=== PATIENT | female | born 1950 | race Caucasian/White ===

== ENCOUNTER 2020-03-13 15:41 | Outpatient (REF) | payer MEDICARE, SELFPAY | END 2020-03-13 15:42 | disposition home or self-care (01) | LOC: HO.LAB 15:41 | PROVIDERS: PCP Internal Medicine; Visit Provider Internal Medicine | DX: R31.0 Gross hematuria (principal); M54.5 Low back pain; Q61.01 Congenital single renal cyst | CPT/HCPCS: 87086; 87088; 87186 ==

== ENCOUNTER 2020-10-18 06:59 | Outpatient (REF) | payer MEDICARE, SELFPAY ==
[2020-10-18 07:48] LABS: Estimated Average Glucose 126 mg/dL
[2020-10-18 08:12] LABS: Alanine Aminotransferase 21 U/L (0-31); Albumin Level 4.2 g/dL (3.5-5.0); Alkaline Phosphatase 87 U/L (39-117); Anion Gap 15 (12-20); Aspartate Amino Transferase 25 U/L (5-31); Bilirubin Total 0.3 mg/dL (0.0-1.0); Blood Urea Nitrogen 19 mg/dL (9-16); Calcium 9.5 mg/dL (8.4-10.2); Carbon Dioxide 27 mmol/L (22-29); Chloride 104 mmol/L (96-108); Estimated Glomerular Filt Rate > 60; Glucose Fasting 114 mg/dL (60-99); Potassium 4.8 mmol/L (3.3-5.1); Sodium 141 mmol/L (135-145); Total Protein 7.1 g/dL (6.5-8.0)
== END 2020-10-18 07:00 | disposition home or self-care (01) ==
LOC: HO.LAB 06:59
PROVIDERS: PCP Internal Medicine; Visit Provider Internal Medicine
DX: F17.291 Nicotine dependence, other tobacco product, in remission (principal); I10 Essential (primary) hypertension; R73.01 Impaired fasting glucose
CPT/HCPCS: 36415; 80053; 83036

== ENCOUNTER 2020-12-13 09:02 | Outpatient (REF) | payer MEDICARE, SELFPAY ==
[2020-12-13 17:03] LABS: Urine Cytology See Pathology rpt
== END 2020-12-13 09:03 | disposition home or self-care (01) ==
LOC: HO.LNP 09:02
PROVIDERS: PCP Internal Medicine; Visit Provider Urology
DX: R32 Unspecified urinary incontinence (principal); R31.29 Other microscopic hematuria
CPT/HCPCS: 88112; 99212

== ENCOUNTER 2021-01-22 07:23 | Outpatient (REF) | payer MEDICARE, SELFPAY ==
--- NOTE | ~2021-01-22 | MM_ITS ---
EXAMINATION: MM SCREENING DIGITAL BREAST TOMOSYNTHESIS, BILATERAL CLINICAL INFORMATION: Screening. Asymptomatic. The lifetime risk of breast cancer based on the Tyrer-Cuzick Model is 5%. COMPARISON: Mammography: 01/16/2020, 12/13/2018, 11/24/2017, 11/19/2016 TECHNIQUE: Digital breast tomosynthesis is performed in both the craniocaudal and mediolateral oblique views along with computer-aided detection (CAD). Synthesized 2D images are generated from the tomosynthesis. FINDINGS: There are scattered areas of fibroglandular density (ACR BI-RADS breast composition Category b). There are no significant masses, abnormal calcifications, or other abnormalities. Parenchymal pattern is similar to prior studies. There is no developing density. The axilla and skin contours are unremarkable. MM/MM tomosynthesis screening BI IMPRESSION: No mammographic evidence of malignancy. ASSESSMENT: BI-RADS 1: Negative RECOMMENDATION: Routine annual mammography screening. This patient's information was entered into a reminder system with a target due date for their next mammogram.
== END 2021-01-22 07:24 | disposition home or self-care (01) ==
LOC: HO.MAMMO 07:23
PROVIDERS: PCP Internal Medicine; Visit Provider Internal Medicine
DX: Z12.31 Encounter for screening mammogram for malignant neoplasm of breast (principal)
CPT/HCPCS: 77063; 77067

== ENCOUNTER 2021-04-14 06:33 | Outpatient (REF) | payer MEDICARE, SELFPAY ==
[2021-04-14 06:49] LABS: MANUAL DIFF FLAG NO
[2021-04-14 07:12] LABS: Basophils Absolute Auto 0.1 X10*3/uL (0.0-0.2); Basophils Percent Auto 0.9 % (0-2); Eosinophils Absolute Auto 0.4 X10*3/uL (0.0-0.4); Eosinophils Percent Auto 4.4 % (0-4); Hematocrit 44.6 % (37.0-47.0); Hemoglobin 14.7 g/dl (12.0-16.0); Imm Gran Abs Auto 0.02 X10*3/uL (0.00-0.03); Imm Gran Pct Auto 0.2 % (0.0-0.4); Lymphocytes Absolute Auto 2.7 X10*3/uL (1.2-4.9); Mean Corpuscular Hemoglobin 29.1 pg (27.0-33.0); Mean Corpuscular Volume 88.1 fL (80.0-98.0); Monocytes Absolute Auto 0.7 X10*3/uL (0.1-1.2); Monocytes Percent Auto 8.1 % (2-11); Neutrophils Absolute Auto 4.3 x10*3/uL (2.0-8.3); Neutrophils Percent Auto 53.4 % (45-73); Platelet Count 279 X10*3/uL (160-400); Red Blood Count 5.06 X10*6/uL (4.20-5.50); White Blood Count 8.1 X10*3/uL (4.8-10.8)
[2021-04-14 07:24] LABS: Estimated Average Glucose 123 mg/dL; Hemoglobin A1c % 5.9 %
[2021-04-14 07:35] LABS: Alanine Aminotransferase 21 U/L (0-31); Albumin Level 4.3 g/dL (3.5-5.0); Alkaline Phosphatase 77 U/L (39-117); Anion Gap 13 (12-20); Aspartate Amino Transferase 18 U/L (5-31); Bilirubin Total 0.7 mg/dL (0.0-1.0); Blood Urea Nitrogen 16 mg/dL (9-16); Calcium 9.6 mg/dL (8.4-10.2); Carbon Dioxide 27 mmol/L (22-29); Chloride 104 mmol/L (96-108); Cholesterol 212 mg/dL; Estimated Glomerular Filt Rate > 60; Glucose Fasting 114 mg/dL (60-99); HDL Cholesterol 45 mg/dL; LDL Cholesterol Calculated 126 mg/dl; Potassium 4.4 mmol/L (3.3-5.1); Sodium 140 mmol/L (135-145); Total Protein 7.1 g/dL (6.5-8.0); Triglycerides 205 mg/dL
== END 2021-04-14 06:34 | disposition home or self-care (01) ==
LOC: HO.LAB 06:33
PROVIDERS: PCP Internal Medicine; Visit Provider Internal Medicine
DX: E78.2 Mixed hyperlipidemia (principal); I10 Essential (primary) hypertension; R31.0 Gross hematuria; R73.01 Impaired fasting glucose
CPT/HCPCS: 36415; 80053; 80061; 83036; 85025

== ENCOUNTER 2021-07-22 08:21 | Outpatient (REF) | payer MEDICARE, SELFPAY ==
--- NOTE | ~2021-07-22 | CT_ITS ---
EXAMINATION: CT CHEST SCREENING CLINICAL INFORMATION: Nicotine dependence. [id number] history of smoking. Quit smoking 10 years ago. COMPARISON: 02/08/2020 and 01/09/2019. TECHNIQUE: Multidetector volumetric CT imaging of the chest is performed without contrast using low dose technique. Additional 2D coronal and sagittal reformatted images and axial 3D maximum intensity projection (MIP) images are generated on the CT workstation. This CT examination was performed using dose optimization techniques as appropriate, variously including the following: *Automated exposure control *Adjustment of mA and/or kV according to patient size (this includes techniques or standardized protocols for targeted exams where dose is matched to indication/reason for exam; i.e. extremities or head) *Use of iterative reconstruction technique DLP: 56 mGy-cm FINDINGS: LUNGS: Central airways are patent. No evidence of bronchial wall thickening or bronchiectasis is appreciated. No confluent parenchymal disease is seen. There are changes of centrilobular emphysema seen within the upper lobes and superior segments of the lower lobes. There are some sub-4 mm densities present as well as calcified granulomas. There is discoid scarring along the major fissure within the left upper lung. Regions of scarring are seen within the lingula and right middle lobe. There is again noted to be a semisolid density within the right upper lobe on image [address] series #5 which measures approximately 9 mm in diameter without significant change dating back to 07/08/2018. There is a 5 mm nodule within the left lower lobe on image 319 of 554 which is unchanged from prior studies dating back to 01/09/2019. There is a 4 mm density seen about the left lower lobe on image 321 of 554 in series #5. This too appears stable. MEDIASTINUM: Visualized thyroid gland appears unremarkable. Heart normal size. No pericardial effusion. No thoracic aortic aneurysm. Coronary artery calcification is seen. There is nonocclusive calcified plaque seen within the aortic arch. No mediastinal or hilar lymphadenopathy appreciated. PLEURA: There is no pleural effusion. No pleural mass or thickening. AXILLA: No lymphadenopathy. UPPER ABDOMEN: Unremarkable OSSEOUS STRUCTURES: No suspicious destructive bony lesions identified. CT/CT lung screening IMPRESSION: Changes of centrilobular emphysema. Essentially stable appearance of lung nodules as described. Old granulomatous disease. ASSESSMENT: Lung-RADS category 2: Benign RECOMMENDATION: Routine annual low-dose CT screening in 12 months.
== END 2021-07-22 08:22 | disposition home or self-care (01) ==
LOC: HO.CT 08:21
PROVIDERS: Visit Provider Physician Assistant Medical
DX: Z12.2 Encounter for screening for malignant neoplasm of respiratory organs (principal); Z87.891 Personal history of nicotine dependence
CPT/HCPCS: 71271

== ENCOUNTER 2021-08-15 06:46 | Outpatient (REF) | payer MEDICARE, SELFPAY ==
[2021-08-15 07:45] LABS: Estimated Average Glucose 123 mg/dL; Hemoglobin A1c % 5.9 %
[2021-08-15 07:59] LABS: Alanine Aminotransferase 31 U/L (0-31); Albumin Level 4.2 g/dL (3.5-5.0); Alkaline Phosphatase 77 U/L (39-117); Anion Gap 11 (12-20); Aspartate Amino Transferase 24 U/L (5-31); Bilirubin Total 0.7 mg/dL (0.0-1.0); Blood Urea Nitrogen 15 mg/dL (9-16); Calcium 9.6 mg/dL (8.4-10.2); Carbon Dioxide 30 mmol/L (22-29); Chloride 105 mmol/L (96-108); Cholesterol 211 mg/dL; Estimated Glomerular Filt Rate > 60; Glucose Random 113 mg/dL (60-115); HDL Cholesterol 50 mg/dL; LDL Cholesterol Calculated 133 mg/dl; Sodium 141 mmol/L (135-145); Total Protein 7.1 g/dL (6.5-8.0); Triglycerides 144 mg/dL
== END 2021-08-15 06:47 | disposition home or self-care (01) ==
LOC: HO.LAB 06:46
PROVIDERS: PCP Internal Medicine; Visit Provider Internal Medicine
DX: E78.00 Pure hypercholesterolemia, unspecified (principal); I10 Essential (primary) hypertension; R05.9 Cough, unspecified; R73.01 Impaired fasting glucose; F17.211 Nicotine dependence, cigarettes, in remission
CPT/HCPCS: 36415; 80053; 80061; 83036

== ENCOUNTER 2022-02-12 08:41 | Outpatient (REF) | payer MEDICARE, SELFPAY ==
[2022-02-12 09:43] LABS: Estimated Average Glucose 120 mg/dL; Hemoglobin A1c % 5.8 %
[2022-02-12 10:13] LABS: Alanine Aminotransferase 17 U/L (0-31); Albumin Level 4.3 g/dL (3.5-5.0); Alkaline Phosphatase 84 U/L (39-117); Anion Gap 15 (12-20); Aspartate Amino Transferase 17 U/L (5-31); Bilirubin Total 0.4 mg/dL (0.0-1.0); Blood Urea Nitrogen 15 mg/dL (9-16); Calcium 9.7 mg/dL (8.4-10.2); Carbon Dioxide 29 mmol/L (22-29); Chloride 104 mmol/L (96-108); Cholesterol 221 mg/dL; Estimated Glomerular Filt Rate > 60; Glucose Random 115 mg/dL (60-115); HDL Cholesterol 43 mg/dL; LDL Cholesterol Calculated 130 mg/dl; Potassium 4.8 mmol/L (3.3-5.1); Sodium 143 mmol/L (135-145); Total Protein 7.1 g/dL (6.5-8.0); Triglycerides 240 mg/dL
== END 2022-02-12 08:42 | disposition home or self-care (01) ==
LOC: HO.LAB 08:41
PROVIDERS: PCP Internal Medicine; Visit Provider Internal Medicine
DX: E78.00 Pure hypercholesterolemia, unspecified (principal); I10 Essential (primary) hypertension; N30.00 Acute cystitis without hematuria; R73.01 Impaired fasting glucose; F17.201 Nicotine dependence, unspecified, in remission
CPT/HCPCS: 36415; 80053; 80061; 83036

== ENCOUNTER 2022-02-16 09:02 | Outpatient (REF) | payer MEDICARE, SELFPAY ==
--- NOTE | ~2022-02-16 | MM_ITS ---
EXAMINATION: MM SCREENING DIGITAL BREAST TOMOSYNTHESIS, BILATERAL CLINICAL INFORMATION: Screening. Asymptomatic. The lifetime risk of breast cancer based on the Tyrer-Cuzick Model is 5%. COMPARISON: Mammography: 01/22/2021, 01/16/2020, 12/13/2018 TECHNIQUE: Digital breast tomosynthesis is performed in both the craniocaudal and mediolateral oblique views along with computer-aided detection (CAD). Synthesized 2D images are generated from the tomosynthesis. Additional left CC view is provided. FINDINGS: There are scattered areas of fibroglandular density (ACR BI-RADS breast composition Category b). There are no significant masses, abnormal calcifications, or other abnormalities. Parenchymal pattern is similar to prior studies. There is no developing density or architectural abnormality. The axilla and skin contours are unremarkable. No significant changes. MM/MM tomosynthesis screening BI IMPRESSION: No mammographic evidence of malignancy. ASSESSMENT: BI-RADS 1: Negative RECOMMENDATION: Routine annual mammography screening. This patient's information was entered into a reminder system with a target due date for their next mammogram.
== END 2022-02-16 09:03 | disposition home or self-care (01) ==
LOC: HO.MAMMO 09:02
PROVIDERS: PCP Internal Medicine; Visit Provider Internal Medicine
DX: Z12.31 Encounter for screening mammogram for malignant neoplasm of breast (principal)
CPT/HCPCS: 77063; 77067

== ENCOUNTER 2022-06-06 07:07 | Outpatient (REF) | payer MEDICARE, SELFPAY ==
[2022-06-06 07:19] LABS: MANUAL DIFF FLAG NO
[2022-06-06 08:01] LABS: Basophils Absolute Auto 0.1 X10*3/uL (0.0-0.2); Basophils Percent Auto 0.9 % (0-2); Eosinophils Absolute Auto 0.3 X10*3/uL (0.0-0.4); Eosinophils Percent Auto 3.8 % (0-4); Hematocrit 42.7 % (37.0-47.0); Hemoglobin 13.7 g/dl (12.0-16.0); Imm Gran Abs Auto 0.02 X10*3/uL (0.00-0.03); Imm Gran Pct Auto 0.2 % (0.0-0.4); Lymphocytes Absolute Auto 2.6 X10*3/uL (1.2-4.9); Lymphocytes Percent Auto 28.7 % (20-40); Mean Corpuscular HGB Conc 32.1 g/dl (31.0-35.0); Mean Corpuscular Hemoglobin 28.7 pg (27.0-33.0); Mean Corpuscular Volume 89.3 fL (80.0-98.0); Monocytes Percent Auto 11.6 % (2-11); Neutrophils Absolute Auto 4.9 x10*3/uL (2.0-8.3); Neutrophils Percent Auto 54.8 % (45-73); Platelet Count 322 X10*3/uL (160-400); Red Blood Count 4.78 X10*6/uL (4.20-5.50); White Blood Count 8.9 X10*3/uL (4.8-10.8)
[2022-06-06 08:28] LABS: Alanine Aminotransferase 18 U/L (0-31); Albumin Level 4.4 g/dL (3.5-5.0); Alkaline Phosphatase 67 U/L (39-117); Anion Gap 13 (12-20); Aspartate Amino Transferase 17 U/L (5-31); Bilirubin Total 0.4 mg/dL (0.0-1.0); Blood Urea Nitrogen 20 mg/dL (9-16); Calcium 9.5 mg/dL (8.4-10.2); Carbon Dioxide 28 mmol/L (22-29); Chloride 105 mmol/L (96-108); Cholesterol 180 mg/dL; Estimated Glomerular Filt Rate > 60; Glucose Random 101 mg/dL (60-115); HDL Cholesterol 55 mg/dL; LDL Cholesterol Calculated 108 mg/dl; Potassium 4.5 mmol/L (3.3-5.1); Sodium 141 mmol/L (135-145); Total Protein 7.1 g/dL (6.5-8.0); Triglycerides 85 mg/dL
[2022-06-06 08:47] LABS: Thyroid Stimulating Hormone 1.35 uIU/mL (0.32-4.0); Vitamin D 25-OH Total 45.1 ng/mL (>30)
[2022-06-06 08:53] LABS: Vitamin B12 469 pg/mL (200-900)
== END 2022-06-06 07:08 | disposition home or self-care (01) ==
LOC: HO.LAB 07:07
PROVIDERS: PCP Internal Medicine; Visit Provider Internal Medicine
DX: E78.2 Mixed hyperlipidemia (principal); I10 Essential (primary) hypertension; F17.201 Nicotine dependence, unspecified, in remission
CPT/HCPCS: 36415; 80053; 80061; 82306; 82607; 84443; 85025

== ENCOUNTER 2023-02-03 07:35 | Outpatient (REF) | payer MEDICARE, SELFPAY ==
[2023-02-03 08:55] LABS: Alanine Aminotransferase 18 U/L (0-31); Albumin Level 4.2 g/dL (3.5-5.0); Alkaline Phosphatase 49 U/L (39-117); Anion Gap 11 (12-20); Aspartate Amino Transferase 18 U/L (5-31); Bilirubin Total 0.4 mg/dL (0.0-1.0); Blood Urea Nitrogen 23 mg/dL (9-16); Calcium 9.6 mg/dL (8.4-10.2); Carbon Dioxide 26 mmol/L (22-29); Chloride 108 mmol/L (96-108); Cholesterol 172 mg/dL (<200); Estimated Glomerular Filt Rate > 60; Glucose Random 100 mg/dL (60-115); HDL Cholesterol 50 mg/dL (>40); LDL Cholesterol Calculated 108 mg/dL (<100); Potassium 3.9 mmol/L (3.3-5.1); Sodium 141 mmol/L (135-145); Triglycerides 72 mg/dL (<150)
== END 2023-02-03 07:36 | disposition home or self-care (01) ==
LOC: HO.LAB 07:35
PROVIDERS: PCP Internal Medicine; Visit Provider Internal Medicine
DX: E78.2 Mixed hyperlipidemia (principal); I10 Essential (primary) hypertension; R05.9 Cough, unspecified; F17.211 Nicotine dependence, cigarettes, in remission
CPT/HCPCS: 36415; 80053; 80061

== ENCOUNTER 2023-02-18 08:57 | Outpatient (REF) | payer MEDICARE, SELFPAY | END 2023-02-18 08:58 | disposition home or self-care (01) | LOC: HO.MAMMO 08:57 | PROVIDERS: PCP Internal Medicine; Visit Provider Internal Medicine | DX: Z12.31 Encounter for screening mammogram for malignant neoplasm of breast (principal) | CPT/HCPCS: 77063; 77067 ==

== ENCOUNTER → 2023-02-18 09:00 | Outpatient (BNV) | payer MEDICARE, SELFPAY | PROVIDERS: PCP Internal Medicine; Visit Provider Radiology Diagnostic Radiology | DX: Z12.31 Encounter for screening mammogram for malignant neoplasm of breast (principal) | CPT/HCPCS: 77063; 77067 ==

== ENCOUNTER 2023-05-03 09:03 | Outpatient (REF) | payer MEDICARE, SELFPAY ==
--- NOTE | ~2023-05-03 | CT_ITS ---
EXAMINATION: CT CHEST SCREENING CLINICAL INFORMATION: History of nicotine dependence; former smoker with 45 pack-year smoking history. COMPARISON: Prior chest CT examinations, most recently 07/22/2021. TECHNIQUE: Multidetector volumetric CT imaging of the chest is performed without contrast using low dose technique. Additional 2D coronal and sagittal reformatted images and axial 3D maximum intensity projection (MIP) images are generated on the CT workstation. This CT examination was performed using dose optimization techniques as appropriate, variously including the following: *Automated exposure control *Adjustment of mA and/or kV according to patient size (this includes techniques or standardized protocols for targeted exams where dose is matched to indication/reason for exam; i.e. extremities or head) *Use of iterative reconstruction technique DLP: 77 mGy-cm FINDINGS: LUNGS: There is mild biapical pleural and parenchymal scarring. In particular, there is a stable focus of parenchymal scarring seen at the anterior right apex which is unchanged from 07/08/2017 and considered benign by virtue of its long-term stability. Within the posterior segment of the right upper lobe laterally (5:129 and 214), a 4 mm ovoid noncalcified nodule and a benign, calcified granuloma are seen. In the lateral basal segment of the left lower lobe (5:3 4347), 5 mm and 4 mm noncalcified nodules are seen. These nodules are unchanged from 02/08/2020, and they are considered benign. No new nodule is seen. There is no mass, infiltrate or groundglass opacity. There are mild centrilobular emphysematous changes. There is no generalized small airway thickening. The central airways appear patent. MEDIASTINUM: The thyroid is unremarkable. There is no thoracic aortic aneurysm. There are mild atherosclerotic calcifications of the great vessel origins and thoracic aorta. No mediastinal or hilar lymphadenopathy is seen. CORONARY ARTERY CALCIFICATION: Mild. PLEURA: There is no pleural effusion. No pleural mass or thickening. AXILLA: No lymphadenopathy. UPPER ABDOMEN: Unremarkable OSSEOUS STRUCTURES: There is multi-level marked thoracic spondylosis, with an appearance suggesting possible DISH (diffuse idiopathic skeletal hyperostosis). No acute or aggressive osseous finding is noted. CT/CT lung screening IMPRESSION: 1. Benign, stable bilateral pulmonary nodules are seen, for which no imaging follow-up is recommended. 2. There are mild centrilobular emphysematous changes. 3. No thoracic lymphadenopathy or pleural effusion is seen. 4. Skeletal findings suggest possible DISH. No aggressive osseous lesion is seen. ASSESSMENT: Lung-RADS category 2: Benign RECOMMENDATION: Routine annual low-dose CT screening in 12 months.
== END 2023-05-03 09:04 | disposition home or self-care (01) ==
LOC: HO.CT 09:03
PROVIDERS: PCP Internal Medicine; Visit Provider Physician Assistant Medical
DX: Z12.2 Encounter for screening for malignant neoplasm of respiratory organs (principal); Z87.891 Personal history of nicotine dependence
CPT/HCPCS: 71271

== ENCOUNTER 2023-08-07 07:19 | Outpatient (REF) | payer MEDICARE, SELFPAY ==
[2023-08-07 07:39] LABS: MANUAL DIFF FLAG NO
[2023-08-07 07:55] LABS: Basophils Absolute Auto 0.1 X10*3/uL (0.0-0.2); Basophils Percent Auto 0.6 % (0-2); Eosinophils Absolute Auto 0.2 X10*3/uL (0.0-0.4); Eosinophils Percent Auto 2.3 % (0-4); Hematocrit 44.7 % (37.0-47.0); Hemoglobin 14.4 g/dl (12.0-16.0); Imm Gran Abs Auto 0.02 X10*3/uL (0.00-0.03); Imm Gran Pct Auto 0.3 % (0.0-0.4); Lymphocytes Absolute Auto 2.4 X10*3/uL (1.2-4.9); Lymphocytes Percent Auto 30.9 % (20-40); Mean Corpuscular HGB Conc 32.2 g/dl (31.0-35.0); Mean Corpuscular Hemoglobin 29.3 pg (27.0-33.0); Mean Corpuscular Volume 90.9 fL (80.0-98.0); Mean Platelet Volume 10.5 fL (9.4-12.3); Monocytes Absolute Auto 0.7 X10*3/uL (0.1-1.2); Monocytes Percent Auto 9.1 % (2-11); Neutrophils Absolute Auto 4.5 x10*3/uL (2.0-8.3); Neutrophils Percent Auto 56.8 % (45-73); Platelet Count 195 X10*3/uL (160-400); Red Blood Count 4.92 X10*6/uL (4.20-5.50); White Blood Count 7.9 X10*3/uL (4.8-10.8)
[2023-08-07 08:30] LABS: Alanine Aminotransferase 17 U/L (0-31); Albumin Level 4.1 g/dL (3.5-5.0); Alkaline Phosphatase 71 U/L (39-117); Anion Gap 13 (12-20); Aspartate Amino Transferase 20 U/L (5-31); Bilirubin Total 0.3 mg/dL (0.0-1.0); Blood Urea Nitrogen 16 mg/dL (9-16); Calcium 9.2 mg/dL (8.4-10.2); Carbon Dioxide 26 mmol/L (22-29); Chloride 107 mmol/L (96-108); Cholesterol 208 mg/dL (<200); Estimated Glomerular Filt Rate > 60; Glucose Random 109 mg/dL (60-115); HDL Cholesterol 52 mg/dL (>40); LDL Cholesterol Calculated 137 mg/dL (<100); Potassium 4.4 mmol/L (3.3-5.1); Sodium 142 mmol/L (135-145); Total Protein 7.1 g/dL (6.5-8.0); Triglycerides 96 mg/dL (<150)
== END 2023-08-07 07:20 | disposition home or self-care (01) ==
LOC: HO.LAB 07:19
PROVIDERS: PCP Internal Medicine; Visit Provider Internal Medicine
DX: E78.1 Pure hyperglyceridemia (principal); F17.211 Nicotine dependence, cigarettes, in remission; G47.62 Sleep related leg cramps; I10 Essential (primary) hypertension
CPT/HCPCS: 36415; 80053; 80061; 85025

== ENCOUNTER 2023-09-02 12:49 | Outpatient (AMB) | payer MEDICARE, SELFPAY ==
--- NOTE | 2023-09-02 13:01 | A.OFFVIS_ITS ---
Intake Vital Signs 3 09/02/23 13:09 Height 5 ft 7.5 in Weight 202 lb BMI 31.2 BP 177/75 H Blood Pressure Location Lt brachial Position Sitting Pulse 97 Intake Visit Reasons: Small growth upper back Intake Note: Patient is seen in office for evaluation and treatment of a growth on the upper back. Pt c/o: onset 4 yrs, tender to the touch, has increase in size, has another one right side of the back that would also like to have removed Quality Improvement Coordinator (Rn) Required: No Accompanied by: Self / Same As Patient Allergies atropine Allergy (Unknown, Verified 12/13/20 09:06) drools lisinopril Allergy (Unknown, Verified 12/13/20 09:06) cough statin Allergy (Mild, Uncoded 09/01/23 09:48) myalgia Medication List - Last Reconciled 09/02/23 by Ray Umanzor MD ezetimibe 10 mg PO DAILY irbesartan-hydrochlorothiazide 300-12.5 mg 1 tab PO DAILY HPI HPI Comments 2 History of Present Illness0 Details 73-year-old female patient presenting wi th a skin lesion of the back which is been present for several years and is gradually increasing in size. She reports discomfort when the lesion is breast when undergoing a massage. She denies any bleeding or infection related to the lesion. She also feels she has a new 1 developing in the lower right back as well. She denies any symptoms other than slight discomfort associated with this lesion as well. [facility] Medical History Osteopenia Urinary incontinence Microscopic hematuria Pulmonary nodule Surgical History Hx of cystoscopy Hx of colonoscopy Hx of cholecystectomy (09/19/08) Hx of cataract surgery (12/24/21) History of 2 sections Hx of tonsillectomy Social History Alcohol intake: current Alcohol intake frequency: holidays/special occasions only Patient Tobacco Use Status: Never used Tobacco Review of Systems Const All systems reviewed & are unremarkable except as noted in HPI and below Denies chills, Denies fever(s), Denies headache(s), Denies poor appetite and Denies weakness ENT Denies headache(s) Card Denies chest pain, Denies irregular heart rhythm, Denies palpitations and Denies dyspnea Resp Denies cough, Denies excessive phlegm production and Denies dyspnea GI Denies abdominal pain, Denies bloating, Denies change in bowel habits, Denies constipation, Denies heartburn, Denies diarrhea, Denies nausea and Denies vomiting Denies urinary frequency Musc Denies back pain, Denies muscle weakness and Denies numbness Skin/Breast Denies changing lesions and Denies unusual bruising Neuro Denies headache(s), Denies numbness, Denies paresthesias and Denies weakness Psych Denies anxiety and Denies depression Endo Denies palpitations Santhosh/Lymph Denies lymphadenopathy Physical Exam Const General: cooperative and no acute distress Nutritional Appearance: well nourished Orientation/consciousness: patient oriented x3 Limitations: no limitations HEENT Head: Yes normocephalic and Yes atraumatic Ears: hearing grossly normal bilaterally Resp Effort & Inspection: normal respiratory effort, no audible wheezes, no cough and no respiratory distress Cardio Jugular venous distension: no JVD GI Inspection: Yes normal to inspection Back/Spine/Pelvis Back/spine/pelvis image: 2 1. Soft tissue mass, slightly pedunculated possibly a lipoma or neurofibroma, 1.5 cm diameter 2. Soft tissue mass, slightly pedunculated possible lipoma or neurofibroma, 1 cm diameter. 3. Slightly pedunculated mass, soft tissue, probable lipoma or neurofibroma, 1 cm diameter Skin Other: Warm, dry, no rash Neuro General: patient oriented x3 Extrem General: Yes no clubbing, cyanosis or edema Assessment & Plan Assessment & Plan (1) Neurofibroma of back: Code(s): D36.17 - Benign neoplasm of peripheral nerves and autonomic nervous system of trunk, unspecified Plan 73-year-old female patient presenting with 3 raised skin lesions which are slightly pedunculated and soft tissue possibly lipoma or neurofibroma. I recommended an excision under local anesthesia as an office procedure. After discussion of the procedure, risks, and alternatives, the patient consents to the procedure. She will be scheduled for a follow-up office procedure. Coding Level of Care Code New Pt Level 4 (47030) Diagnoses Neurofibroma of back D36.17
[2023-09-02 13:09] VITALS: BP 177/75; PULSE 97; BMI 31.2
== END 2023-09-02 13:20 | disposition home or self-care (01) ==
PROVIDERS: PCP Internal Medicine; Referring Provider Internal Medicine; Visit Provider Surgery
DX: D36.17 Benign neoplasm of peripheral nerves and autonomic nervous system of trunk, unspecified (principal)
CPT/HCPCS: 99204

== ENCOUNTER → 2023-09-02 12:49 | Outpatient (BNVA) | payer MEDICARE, SELFPAY | PROVIDERS: PCP Internal Medicine; Referring Provider Internal Medicine; Visit Provider Surgery | DX: D36.17 Benign neoplasm of peripheral nerves and autonomic nervous system of trunk, unspecified (principal) | CPT/HCPCS: 99202 ==

== ENCOUNTER 2023-10-05 09:11 | Outpatient (REF) | payer MEDICARE, SELFPAY | END 2023-10-05 09:12 | disposition home or self-care (01) | LOC: HO.LNP 09:11 | PROVIDERS: PCP Internal Medicine; Visit Provider Surgery | DX: D17.1 Benign lipomatous neoplasm of skin and subcutaneous tissue of trunk (principal) | CPT/HCPCS: 88304; 88305 ==

== ENCOUNTER 2023-10-05 09:11 | Outpatient (AMB) | payer MEDICARE, SELFPAY ==
--- NOTE | 2023-10-05 09:20 | MHC.OFFVIS ---
Vital Signs 10/05/23 09:21 Height 5 ft 7.5 in Weight 191 lb 8 oz BMI 29.5 BP 172/72 H Blood Pressure Location Lt brachial Position Sitting Pulse 104 H Intake Visit Reasons: Excision of multiple back cyst Intake Note: Patient is seen for office procedure, excision of multiple back cyst. Pt c/o: here for removal of cyst, no concerns or changes Computer Information Systems Instructor Required: No Accompanied by: Self / Same As Patient Allergies atropine Allergy (Unknown, Verified 10/05/23 09:44) drools lisinopril Allergy (Unknown, Verified 10/05/23 09:44) cough statin Allergy (Mild, Uncoded 10/05/23 09:44) myalgia HPI Comments Details: Patient returns for excision of 3 lesions of the back which appeared to be lipomas. Findings included: 1. Soft tissue mass, slightly pedunculated possibly a lipoma or neurofibroma, 1.5 cm diameter upper midback 2. Soft tissue mass, slightly pedunculated possible lipoma or neurofibroma, 1 cm diameter lower right back. 3. Slightly pedunculated mass, soft tissue, probable lipoma or neurofibroma, 1 cm diameter lower mid back PFSH Medical History Osteopenia Urinary incontinence Microscopic hematuria Pulmonary nodule Surgical History Hx of cystoscopy Hx of colonoscopy Hx of cholecystectomy (09/19/08) Hx of cataract surgery (12/24/21) History of 2 sections Hx of tonsillectomy Social History Alcohol intake: current Alcohol intake frequency: holidays/special occasions only Patient Tobacco Use Status: Never used Tobacco Office Procedures Excision Details: Preoperative diagnosis: Soft tissue mass of back x3 Postoperative diagnosis: Same Procedure: Excision of soft tissue mass of back x3 Surgeon: Ray Umanzor MD Rubber Roller Grinder: None Anesthesia: Lidocaine 1% with epinephrine Indications for procedure: 73-year-old female patient presenting with a 3 soft tissue masses of the back. The largest measures 1.5 cm is located of the in the upper mid back. The 2nd measures approximately 1 cm located to the right of midline in the lower back. A 3rd 1 also measures 1 cm located in the lower mid back. Operative findings: Soft tissue mass as noted above Specimen: Soft tissue mass of the back x3 Estimated blood loss: Less than 1 mL Complications: None Procedure details: Patient was brought to the procedure room and placed in a prone position. The site of surgery was confirmed by the patient in the upper mid back lower midback and lower right back. After assuring informed consent the skin was prepped with Betadine and draped in a sterile fashion. Local anesthesia was infiltrated around each lesion. Beginning in the upper mid back, an elliptical incision oriented transversely was then created. This carried out through subcutaneous tissue and around the soft tissue mass. The lesion was completely excised and sent to pathology for further examination. Attention was then directed to the right lower back lesion which again a transverse oriented elliptical incision was also created around the lesion. This was carried out through subcutaneous tissue and around the soft tissue mass. This was excised and sent to pathology for further examination. Attention was then directed to the lower midline lesion in the back which again an elliptical incision was created in a transverse fashion and carried out through subcutaneous tissue and around the soft tissue mass. This also was passed passed off the table and sent to pathology for further examination. Skin was closed in all 3 incisions using interrupted 3-0 nylon sutures. Sterile dressings consisting of 2 x 2 gauze and Tegaderm were then applied. The patient tolerated the procedure well was discharged to home in stable condition. 13759-etppa/arms/legs 0.6-1cm (X2) 63195-gstai/arms/legs 1.1-2cm Procedure code (CPT) selection complete Assessment & Plan Assessment & Plan (1) Lipoma: Code(s): D17.9 - Benign lipomatous neoplasm, unspecified Category: Medical Qualifiers: Lipoma location: trunk Qualified Code(s): D17.1 - Benign lipomatous neoplasm of skin and subcutaneous tissue of trunk Plan Patient tolerated the procedure well and will return in 1 week for suture removal. Orders: Orders Surgical Today D17.9 - Benign lipomatous neoplasm, unspecified Coding Level of Care Code Procedure Only Diagnoses Lipoma of torso D17.1 Lipoma location: trunk CPT Codes Trunk/Arms/Legs - CPT: 89963-ghver/arms/legs 0.6-1cm ([id number]) Trunk/Arms/Legs - CPT: 50475-ovanr/arms/legs 1.1-2cm ([id number])
[2023-10-05 09:21] VITALS: BP 172/72; PULSE 104; BMI 29.5
== END 2023-10-05 09:53 | disposition home or self-care (01) ==
PROVIDERS: PCP Internal Medicine; Visit Provider Surgery
DX: D17.1 Benign lipomatous neoplasm of skin and subcutaneous tissue of trunk (principal)
CPT/HCPCS: 21930

== ENCOUNTER 2023-10-12 09:28 | Outpatient (AMB) | payer MEDICARE, SELFPAY ==
--- NOTE | 2023-10-12 09:29 | A.OFFVIS_ITS ---
Intake Visit Reasons: Post excision of back cyst Intake Note: This patient presents for a post-op status post excision of back cyst. Patient c/o; reports no complaints. Nursing Service Director Required: No Accompanied by: Self / Same As Patient Allergies atropine Allergy (Unknown, Verified 10/12/23 09:30) drools lisinopril Allergy (Unknown, Verified 10/12/23 09:30) cough statin Allergy (Mild, Uncoded 10/12/23 09:30) myalgia HPI Comments Details: 73-year-old female returning 1 week following excision of 2 neurofibromas and 1 dermal nevi of the back. She tolerated the procedure well and denies any ongoing symptoms. She returns today for suture removal. [facility] Medical History Osteopenia Urinary incontinence Microscopic hematuria Pulmonary nodule Surgical History Hx of cystoscopy Hx of colonoscopy Hx of cholecystectomy (09/19/08) Hx of cataract surgery (12/24/21) History of 2 sections Hx of tonsillectomy Social History Alcohol intake: current Alcohol intake frequency: holidays/special occasions only Patient Tobacco Use Status: Never used Tobacco Physical Exam Const General: comfortable and no acute distress Nutritional Appearance: well nourished Orientation/consciousness: patient oriented x3 Resp Effort & Inspection: normal respiratory effort Skin Other: Back lesions excision site clean, and intact. Sutures removed and Steri-Strips applied. General skin exam: no rashes or lesions noted Neuro General: patient oriented x3 Assessment & Plan Assessment & Plan (1) Neurofibroma of back: Code(s): D36.17 - Benign neoplasm of peripheral nerves and autonomic nervous system of trunk, unspecified Category: Medical Plan Patient returns 1 week following excision of 3 lesions of the back. She tolerated the procedure well and all 3 were benign. She should follow up as needed. Coding Level of Care Code Global (95210) Diagnoses Neurofibroma of back D36.17
== END 2023-10-12 09:39 | disposition home or self-care (01) ==
PROVIDERS: PCP Internal Medicine; Visit Provider Surgery
DX: D36.17 Benign neoplasm of peripheral nerves and autonomic nervous system of trunk, unspecified (principal)
CPT/HCPCS: 99024

== ENCOUNTER → 2023-10-12 09:28 | Outpatient (BNVA) | payer MEDICARE, SELFPAY | PROVIDERS: PCP Internal Medicine; Visit Provider Surgery | DX: Z09 Encounter for follow-up examination after completed treatment for conditions other than malignant neoplasm (principal); D36.17 Benign neoplasm of peripheral nerves and autonomic nervous system of trunk, unspecified | CPT/HCPCS: 99212 ==

== ENCOUNTER 2024-02-19 07:20 | Outpatient (REF) | payer MEDICARE, SELFPAY ==
[2024-02-19 09:36] LABS: Alanine Aminotransferase 19 U/L (0-31); Albumin Level 4.2 g/dL (3.5-5.0); Alkaline Phosphatase 80 U/L (39-117); Anion Gap 14 (12-20); Aspartate Amino Transferase 18 U/L (5-31); Bilirubin Total 0.4 mg/dL (0.0-1.0); Blood Urea Nitrogen 15 mg/dL (9-16); Calcium 9.7 mg/dL (8.4-10.2); Carbon Dioxide 27 mmol/L (22-29); Chloride 105 mmol/L (96-108); Cholesterol 194 mg/dL (<200); Estimated Glomerular Filt Rate > 60; Glucose Random 110 mg/dL (60-115); HDL Cholesterol 52 mg/dL (>40); LDL Cholesterol Calculated 112 mg/dL (<100); Potassium 4.5 mmol/L (3.3-5.1); Sodium 141 mmol/L (135-145); Total Protein 7.2 g/dL (6.5-8.0); Triglycerides 151 mg/dL (<150)
== END 2024-02-19 07:21 | disposition home or self-care (01) ==
LOC: HO.LAB 07:20
PROVIDERS: PCP Internal Medicine; Visit Provider Internal Medicine
DX: E78.00 Pure hypercholesterolemia, unspecified (principal); E88.2 Lipomatosis, not elsewhere classified; F17.211 Nicotine dependence, cigarettes, in remission; I10 Essential (primary) hypertension
CPT/HCPCS: 36415; 80053; 80061

== ENCOUNTER 2024-02-21 10:01 | Outpatient (REF) | payer MEDICARE, SELFPAY ==
--- NOTE | ~2024-02-21 | MM_ITS ---
EXAMINATION: MM SCREENING DIGITAL BREAST TOMOSYNTHESIS, BILATERAL CLINICAL INFORMATION: Screening. Asymptomatic. COMPARISON: Mammography: Comparison is made with available priors TECHNIQUE: Digital breast mammography with tomosynthesis is performed in both the craniocaudal and mediolateral oblique views along with computer-aided detection (CAD). FINDINGS: There are scattered areas of fibroglandular density (ACR BI-RADS breast composition Category b). There are no significant masses, abnormal calcifications, or other abnormalities. MM/MM tomosynthesis screening BI IMPRESSION: No mammographic evidence of malignancy. ASSESSMENT: BI-RADS BI-RADS 1 - Negative RECOMMENDATION: Routine annual mammography screening. 1 year F/U This examination should not preclude the clinical evaluation of a suspicious palpable abnormality. This patient's information was entered into a reminder system with a target due date for their next mammogram. Electronically signed by: Mikayla Albert DO 03/03/2024 10:08 AM EDMitch
== END 2024-02-21 10:02 | disposition home or self-care (01) ==
LOC: HO.MAMMO 10:01
PROVIDERS: PCP Internal Medicine; Visit Provider Internal Medicine
DX: Z12.31 Encounter for screening mammogram for malignant neoplasm of breast (principal)
CPT/HCPCS: 77063; 77067

== ENCOUNTER → 2024-02-21 10:15 | Outpatient (BNV) | payer MEDICARE, SELFPAY | PROVIDERS: PCP Internal Medicine; Visit Provider Internal Medicine | DX: Z12.31 Encounter for screening mammogram for malignant neoplasm of breast (principal) | CPT/HCPCS: 77063; 77067 ==

== ENCOUNTER 2024-08-31 06:51 | Outpatient (REF) | payer MEDICARE, SELFPAY ==
[2024-08-31 07:11] LABS: MANUAL DIFF FLAG NO
[2024-08-31 07:54] LABS: Basophils Absolute Auto 0.1 X10*3/uL (0.0-0.2); Basophils Percent Auto 0.8 % (0-2); Eosinophils Absolute Auto 0.2 X10*3/uL (0.0-0.4); Eosinophils Percent Auto 3.1 % (0-4); Hematocrit 45.3 % (37.0-47.0); Hemoglobin 15.3 g/dl (12.0-16.0); Imm Gran Abs Auto 0.01 X10*3/uL (0.00-0.03); Imm Gran Pct Auto 0.1 % (0.0-0.4); Lymphocytes Percent Auto 38.7 % (20-40); Mean Corpuscular HGB Conc 33.8 g/dl (31.0-35.0); Mean Corpuscular Volume 88.8 fL (80.0-98.0); Mean Platelet Volume 8.8 fL (9.4-12.3); Monocytes Absolute Auto 0.8 X10*3/uL (0.1-1.2); Monocytes Percent Auto 10.2 % (2-11); Neutrophils Absolute Auto 3.6 x10*3/uL (2.0-8.3); Neutrophils Percent Auto 47.1 % (45-73); Platelet Count 250 X10*3/uL (160-400); Red Cell Distribution Width 12.7 % (11.0-16.0); White Blood Count 7.6 X10*3/uL (4.8-10.8)
[2024-08-31 08:23] LABS: Alanine Aminotransferase 24 U/L (0-31); Albumin Level 4.2 g/dL (3.5-5.0); Alkaline Phosphatase 74 U/L (39-117); Anion Gap 12 (12-20); Aspartate Amino Transferase 26 U/L (5-31); Bilirubin Total 0.5 mg/dL (0.0-1.0); Blood Urea Nitrogen 17 mg/dL (9-16); Calcium 9.7 mg/dL (8.4-10.2); Carbon Dioxide 25 mmol/L (22-29); Chloride 108 mmol/L (96-108); Cholesterol 202 mg/dL (<200); Estimated Glomerular Filt Rate > 60; Glucose Random 111 mg/dL (60-115); HDL Cholesterol 53 mg/dL (>40); LDL Cholesterol Calculated 118 mg/dL (<100); Potassium 4.4 mmol/L (3.3-5.1); Sodium 141 mmol/L (135-145); Total Protein 7.4 g/dL (6.5-8.0); Triglycerides 157 mg/dL (<150)
== END 2024-08-31 06:52 | disposition home or self-care (01) ==
LOC: HO.LAB 06:51
PROVIDERS: PCP Internal Medicine; Visit Provider Internal Medicine
DX: E78.00 Pure hypercholesterolemia, unspecified (principal); F17.211 Nicotine dependence, cigarettes, in remission; G47.00 Insomnia, unspecified; I10 Essential (primary) hypertension; M20.42 Other hammer toe(s) (acquired), left foot
CPT/HCPCS: 36415; 80053; 80061; 85025

== ENCOUNTER 2024-11-11 08:12 | Outpatient (REF) | payer MEDICARE, SELFPAY | END 2024-11-11 08:13 | disposition home or self-care (01) | LOC: HO.LAB 08:12 | PROVIDERS: PCP Internal Medicine; Visit Provider Internal Medicine | DX: N32.81 Overactive bladder (principal); N39.41 Urge incontinence | CPT/HCPCS: 87086 ==

== ENCOUNTER 2025-02-26 10:02 | Outpatient (REF) | payer MEDICARE, SELFPAY ==
--- NOTE | ~2025-02-26 | MM_ITS ---
EXAMINATION: MM SCREENING DIGITAL BREAST TOMOSYNTHESIS, BILATERAL CLINICAL INFORMATION: Screening. Asymptomatic. COMPARISON: Comparison made to multiple prior, most recent February 21, 2024, and most remote January 16, 2020. TECHNIQUE: Digital breast tomosynthesis is performed in mediolateral oblique and craniocaudal views along with computer-aided detection (CAD). Synthesized 2D images are generated from the tomosynthesis. FINDINGS: BREAST COMPOSITION: There are scattered areas of fibroglandular density. BILATERAL BREASTS: No significant masses, suspicious calcifications or other abnormalities are seen in either breast. MM/MM tomosynthesis screening BI IMPRESSION: BILATERAL BREASTS: Negative, no mammographic evidence of malignancy. Normal interval follow-up is recommended in 12 months. ASSESSMENT: BI-RADS: Category 1: Negative RECOMMENDATION: Routine annual mammography screening. FOLLOW-UP: 1 year F/U This examination should not preclude the clinical evaluation of a suspicious palpable abnormality. This patient's information was entered into a reminder system with a target due date for their next mammogram. Electronically signed by: Abram Heath MD 02/27/2025 06:05 PM EDT
--- OUTSIDE RECORDS SUMMARY | 2025-02-26 12:17 | XMS_ITS | Patient Health Record ---
Author Organization [facility] Address [address] [place] [id number] Care Team Providers Care Encyclopedia Research Worker Name Role Phone Millie Mitchell Primary Care Provider Shady Byrd Jr Unavailable Allergies Allergen (clinical drug ingredient) Drug/Non Drug Allergy documented on EMR Reaction Allergy Type Onset Date Status atropine Atropine Sulfate Unknown Drug Allergy Active lisinopril lisinopril (uncoded) cough Allergy Active Reason For Referral No Information Medications Medication SIG (Take, Route, Frequency, Duration) Notes Start Date End Date Status MiraLax (colon prep) 8.3 ounce ((238) grams mixed with Gatorade or Crystal Light orally begin at 5:00 p.m. the day before the procedure for 1 day 03/15/2019 Active Irbesartan-hydroCHLOROthia zide 300-12.5 MG 1 tablet Orally Once a day for 30 day(s) Active Immunizations Vaccine Route Administration Date Status Comme nts Influenza Unknown 03/02/2019 Administered Social History Tobacco Use: Social History Observation Description Date Details (start date - stop date) Former Smoker NA - NA Tobacco Use/Smoking Question Answer Notes Patient is a former smoker How long has it been since you last smoked? > 10 years Alcohol Screen Question Answer Notes Did you have a drink contain ing alcohol in the past year? Yes How often did you have a dri nk containing alcohol in the past year? Monthly or less (1 point) How many drinks did you have on a typical day when you were drinking in the past year? 1 or 2 drinks (0 point) How often did you have 6 or more drinks on one occasion in the past year? Never (0 point) Points 1 Interpretation Negative Problems Problem Type SNOMED Code ICD Code Onset Dates Problem Status W/U Status Risk Notes Problem 287858970 Colon cancer screening (Z12.11) Active confirmed Problem [id number] GERD without esophagitis (K21.9) Active confirmed Plan Of Treatment Future Test Test Name Order Date COLONOSCOPY 03/15/2019 Insurance Providers Payer Name Payer Address Payer Phone Subscriber Number Group Number Insured Name Patient Relationship to Insured Coverage Start Date Coverage End Date MEDICARE OF [place] [address] [place] [id number] [place]IN BURGOS Self - patient is the insured [employer] CLAIMS [address] [place] [address] [phone] [id number] [place]IN BURGOS Self - patient is the insured Medical (General) History Medical History History ICD Code hypertension solitary pulmonary nodule hematuria Surgical History Surgery Date(Month/Year) tonsillectomy section x2 cholecystectomy cystoscopy
== END 2025-02-26 10:03 | disposition home or self-care (01) ==
LOC: HO.MAMMO 10:02
PROVIDERS: PCP Internal Medicine; Visit Provider Internal Medicine
DX: Z12.31 Encounter for screening mammogram for malignant neoplasm of breast (principal)
CPT/HCPCS: 77063; 77067

== ENCOUNTER → 2025-02-26 10:15 | Outpatient (BNV) | payer MEDICARE, SELFPAY | PROVIDERS: PCP Internal Medicine; Visit Provider Radiology Body Imaging | DX: Z12.31 Encounter for screening mammogram for malignant neoplasm of breast (principal) | CPT/HCPCS: 77063; 77067 ==

== ENCOUNTER 2025-03-05 06:19 | Outpatient (REF) | payer MEDICARE, SELFPAY ==
--- OUTSIDE RECORDS SUMMARY | 2025-03-05 06:21 | XMS_ITS | Patient Health Record ---
Author Organization [facility] Address [address] [place] [id number] Care Team Providers Care Extruding Department Supervisor Name Role Phone Millie Mitchell Primary Care [...] Problem Status W/U Status Risk Notes Problem [id number] Colon cancer screening (Z12.11) Active confirmed Problem [id number] GERD without esophagitis (K21.9) Active confirmed Plan Of Treatment Future Test Test Name Order Date COLONOSCOPY 03/15/2019 Insurance Providers Payer Name Payer Address Payer Phone Subscriber Number Group Number Insured Name Patient Relationship to Insured Coverage Start Date Coverage End Date MEDICARE OF [place] [address] [place] [address] [id number] AUSTIN BURGOS Self - patient is the insured [employer] CLAIMS [address] [place] [phone] [id number] AUSTIN BURGOS Self - patient is the insured Medical (General) History Medical History History ICD Code hypertension solitary pulmonary nodule hematuria Surgical History Surgery Date(Month/Year) tonsillectomy section x2 cholecystectomy cystoscopy
[2025-03-05 07:36] LABS: Alanine Aminotransferase 22 U/L (0-31); Albumin Level 4.3 g/dL (3.5-5.0); Alkaline Phosphatase 61 U/L (39-117); Anion Gap 10 (12-20); Aspartate Amino Transferase 21 U/L (5-31); Blood Urea Nitrogen 24 mg/dL (9-16); Calcium 9.1 mg/dL (8.4-10.2); Carbon Dioxide 27 mmol/L (22-29); Chloride 107 mmol/L (96-108); Estimated Glomerular Filt Rate > 60; Potassium 4.2 mmol/L (3.3-5.1); Sodium 140 mmol/L (135-145); Total Protein 6.9 g/dL (6.5-8.0)
== END 2025-03-05 06:20 | disposition home or self-care (01) ==
LOC: HO.LAB 06:19
PROVIDERS: PCP Internal Medicine; Visit Provider Internal Medicine
DX: E78.00 Pure hypercholesterolemia, unspecified (principal); F17.211 Nicotine dependence, cigarettes, in remission; I10 Essential (primary) hypertension; Z68.31 Body mass index [BMI] 31.0-31.9, adult
CPT/HCPCS: 36415; 80053